=== PATIENT | male | born 1990 | race Caucasian/White ===

== ENCOUNTER 2019-04-19 18:17 | Emergency (ER) | payer SELFPAY ==
[~2019-04-19] VITALS: Ht 177.8 cm; Wt 90.7 kg
[2019-04-19] MEDS ORDERED: IBU800 MG PO (19:22)
[2019-04-19] MEDS ORDERED: CYCLOBENZAPRINE10 MG PO (19:22)
== END 2019-04-19 19:49 | disposition home or self-care (01) ==
LOC: ED 18:17
DX: M24.412 Recurrent dislocation, left shoulder (principal)